=== PATIENT | male | born 1985 | race Caucasian/White ===

== ENCOUNTER 2019-05-29 20:47 | Inpatient (IN) | payer MEDICARE ==
--- NOTE | 2019-05-29 20:52 | PDOC ---
Rapid Medical Evaluation Time Seen by Provider: 05/29/19 20:49 Medical Evaluation: 05/29/19 20:50 HPI:9 foot fall on back onto metal pipe 3 days ago now with increasing lower back pain no radicular symptoms PE: no gross deficits + midline tenderness lumbar spine about L1,2, and 3 ORDERS: CT Lumbar spine Discharge Disposition - Diagnosis Lower back pain - Referrals - Patient Instructions - Post Discharge Activity
[2019-05-29] MEDS ORDERED: morphine CARPU-JECT 4 MG/1 ML DISP.SYRIN IVPUSH ONE (22:43)
--- NOTE | 2019-05-29 22:49 | PDOC ---
*Physical Exam - Vital Signs Last Vital Signs Temp Pulse Resp BP Pulse Ox 98.7 F 94 H 16 155/94 100 05/29/19 20:54 05/29/19 20:54 05/29/19 20:54 05/29/19 20:54 05/29/19 20:54 ED Treatment Course - LABORATORY CBC & Chemistry Diagram: 05/29/19 23:05 05/29/19 23:05 Medical Decision Making - Medical Decision Making 05/29/19 22:48 Pt seen by the Advanced Practice Provider under my direct supervision Ancillary studies reviewed I agree with plan as outlined by the Advanced Practice Provider ASHKAN Shore 05/30/19 02:58 CBC, BMP 05/29/19 23:05 05/29/19 23:05 CMP Sodium 134 mmol/L (136-145) L 05/29/19 23:05 Potassium 4.3 mmol/L (3.5-5.1) 05/29/19 23:05 Chloride 101 mmol/L (98-107) 05/29/19 23:05 Carbon Dioxide 27 mmol/L (21-32) 05/29/19 23:05 Anion Gap 7 MMOL/L (8-16) L 05/29/19 23:05 BUN 18.8 mg/dL (7-18) H 05/29/19 23:05 Creatinine 0.9 mg/dL (0.55-1.3) 05/29/19 23:05 Est GFR (CKD-EPI)AfAm 126.90 05/29/19 23:05 Est GFR (CKD-EPI)NonAf 109.49 05/29/19 23:05 Random Glucose 328 mg/dL (74-106) H* 05/29/19 23:05 Calcium 9.2 mg/dL (8.5-10.1) 05/29/19 23:05 Total Bilirubin 0.4 mg/dL (0.2-1) 05/29/19 23:05 AST 6 U/L (15-37) L 05/29/19 23:05 ALT 25 U/L (13-61) 05/29/19 23:05 Alkaline Phosphatase 133 U/L (45-117) H 05/29/19 23:05 Total Protein 7.2 g/dl (6.4-8.2) 05/29/19 23:05 Albumin 3.7 g/dl (3.4-5.0) 05/29/19 23:05 CT scan demonstrates no aortic dissection or aneurysm, no retroperitoneal hematoma. Fractures of left L1, L2, and L3 transverse processes. No paraspinal hematoma. 05/30/19 03:37 Consultation placed in for Dr. Walter. Pt discussed with [facility] hospitalist. Case accepted to med/surg admission. *DC/Admit/Observation/Transfer Diagnosis at time of Disposition: Lower back pain Qualifiers: Chronicity: acute Back pain laterality: unspecified Sciatica presence: without sciatica Qualified Code(s): M54.5 - Low back pain Lumbar vertebral fracture Qualifiers: Encounter type: initial encounter Lumbar vertebra fracture level: unspecified lumbar vertebra Fracture type: closed - Discharge Dispostion Condition at time of disposition: Stable Decision to Admit order: Yes - Referrals - Patient Instructions - Post Discharge Activity
--- NOTE | 2019-05-29 23:05 | PDOC ---
History of Present Illness - General Chief Complaint: Injury Stated Complaint: PAIN Time Seen by Provider: 05/29/19 20:49 History Source: Patient Exam Limitations: No Limitations - History of Present Illness Initial Comments: 05/29/19 22:48 HISTORY OF PRESENT ILLNESS: 34-year-old male denies medical history of presents emergency department for evaluation of lower back pain status post fall from scaffolding 2 days ago. Patient states he works in construction and while on a scaffolding lost his balance causing him to fall backwards. He grabbed onto a pole designed for safety which broke off the scaffolding causing him to fall off the scaffolding landing on another crossbeam of the scaffold after falling approximately 6 feet. Patient reports he struck the crossbeam the scaffolding with his lower back and left flank. Patient reports the pain is worsened over the past 2 days was convinced to come to the emergency department by his friends and family. Patient has not taken anything for pain denies any urinary difficulties. Patient denies any incontinence of bladder or bowel, saddle anesthesia, numbness or tingling in the lower extremities or head trauma. No recent travel or sick contacts. PAST MEDICAL HISTORY: Denies past medical history SURGICAL HISTORY: Denies ALLERGIES: No known drug allergies REVIEW OF SYSTEMS General/Constitutional: Denies fever or chills. Denies weakness, weight change. HEENT: Denies change in vision. Denies ear pain or discharge. Denies sore throat. Cardiovascular: Denies chest pain or shortness of breath. Respiratory: Denies cough, wheezing, or hemoptysis. Gastrointestinal: Denies nausea, vomiting, diarrhea or constipation. Denies rectal bleeding. Genitourinary: Denies dysuria, frequency, or change in urination. Musculoskeletal: see HPI Skin and breasts: Denies rash or easy bruising. Neurologic: Denies headache, vertigo, loss of consciousness, or loss of sensation. Psychiatric: Denies depression or anxiety. Endocrine: Denies increased thirst. Denies abnormal weight change. Hematologic/Lymphatic: Denies anemia, easy bleeding, or history of blood clots. Allergic/Immunologic: Denies hives or skin allergy. Denies latex allergy. PHYSICAL EXAM General Appearance: Well-appearing, appropriately dressed. No apparent distress , no intoxication. HEENT: EOMI, PERRLA, normal ENT inspection, normal voice, TMs normal, pharynx normal. No conjunctival pallor. No photophobia, scleral icterus. Neck: Supple. Trachea midline. No tenderness, rigidity, carotid bruit, stridor , lymphadenopathy, or thyromegaly. Respiratory/Chest: Lungs CTAB. No shortness of breath, chest tenderness, respiratory distress, accessory muscle use. No crackles, rales, rhonchi, stridor , wheezing, dullness Cardiovascular: RRR. S1, S2. No JVD, murmur, bradycardia, tachycardia. Vascular Pulses: Dorsalis-Pedis (R): 2+, Dorsalis-Pedis (L): 2+ Gastrointestinal/Abdominal: Normal bowel sounds. Abdomen soft, non-distended. Left sided abdominal tenderness. No organomegaly, pulsatile mass, guarding, hernia, hepatomegaly, splenomegaly. Lymphatic: No adenopathy, tenderness. Musculoskeletal/Extremities: Normal inspection. FROM of all extremities, normal capillary refill. Pelvis Stable. Left CVA tenderness. No tenderness to extremities, pedal edema, swelling, erythema or deformity. No cervical, thoracic or lumbar spinal deformity, crepitus or step offs present. Integumentary: 3-5 cm diameter circular ecchymotic areas presents to the left lower back lateral. Ecchymosis extending over the left flank. Neurologic: quarter lining smoother II-XII intact. Fully oriented, alert. Appropriate mood/affect. Motor strength 5/5. No appreciable EOM palsy, facial droop or sensory deficit. Past History - Past Medical History Allergies/Adverse Reactions: Allergies Allergy/AdvReac Type Severity Reaction Status Date / Time No Known Allergies Allergy Verified 05/29/19 21:00 Home Medications: Ambulatory Orders NK [No Known Home Medication] 05/30/19 COPD: No - Suicide/Smoking/Psychosocial Hx Smoking History: Former smoker Have you smoked in the past 12 months: No If you are a former smoker, when did you quit?: 04/2019 Information on smoking cessation initiated: No Hx Alcohol Use: No (hx of etoh) Drug/Substance Use Hx: No (hx cocaine/marijuana) *Physical Exam - Vital Signs Last Vital Signs Temp Pulse Resp BP Pulse Ox 98.7 F 94 H 16 155/94 100 05/29/19 20:54 05/29/19 20:54 05/29/19 20:54 05/29/19 20:54 05/29/19 20:54 ED Treatment Course - LABORATORY CBC & Chemistry Diagram: 05/30/19 10:30 05/30/19 10:40 - RADIOLOGY Radiology Studies Ordered: Category Date Time Status ABDOMEN & PELVIS CT WITH CONTR [CT] Stat CT Scan 05/29/19 22:[address] WITH CONTRAST [CT] Stat CT Scan 05/29/19 22:47 Ordered Medical Decision Making - Medical Decision Making 05/29/19 23:05 A/P: 34-year-old male with lower back pain status post trauma Differential diagnosis includes but is not limited to retroperitoneal bleed, spinal fracture, intestinal perforation Basic labs with type and screen CT of chest, abdomen and pelvis with IV contrast Morphine 4 mg IV push Reassess 05/30/19 01:55 CBC is notable for WBC of 11.7. Chemistries notable for glucose 328. Patient with no history of diabetes. Giving trauma I will add lipase to rule out a pancreatitis. Patient is pending lipase and CT chest abdomen and pelvis. Patient signed out to Dr. Koroma. *DC/Admit/Observation/Transfer Diagnosis at time of Disposition: Lower back pain Qualifiers: Chronicity: acute Back pain laterality: unspecified Sciatica presence: without sciatica Qualified Code(s): M54.5 - Low back pain Lumbar vertebral fracture Qualifiers: Encounter type: initial encounter Lumbar vertebra fracture level: unspecified lumbar vertebra Fracture type: closed - Discharge Dispostion Condition at time of disposition: Stable - Referrals - Patient Instructions - Post Discharge Activity
[2019-05-29] MEDS ORDERED: morphine SULFATE 4 MG/ML VIAL ONE (23:11)
[2019-05-29 23:28] LABS: BASO % 0.4 % (0-2.0); EOS % 0.2 % (0-4.5); HEMATOCRIT 41.4 % (35.4-49); HEMOGLOBIN 14.1 GM/dL (11.7-16.9); LYMPH % 35.5 % (8-40); MCH 29.5 pg (25.7-33.7); MCHC 34.1 g/dl (32.0-35.9); MEAN CELL VOLUME 86.4 fl (80-96); MEAN PLT VOLUME 8.9 fl (7.5-11.1); NEUT % 57.9 % (42.8-82.8); PLATELET COUNT 257 K/MM3 (134-434); RBC 4.79 M/mm3 (4.00-5.60); RDW 13.2 % (11.9-15.9); WHITE BLOOD COUNT 11.7 K/mm3 (4.0-10.0)
[2019-05-29 23:59] LABS: ALBUMIN 3.7 g/dl (3.4-5.0); BILIRUBIN,TOTAL 0.4 mg/dL (0.2-1); BLOOD UREA NITROGEN 18.8 mg/dL (7-18); CALCIUM 9.2 mg/dL (8.5-10.1); CREATININE 0.9 mg/dL (0.55-1.3); POTASSIUM 4.3 mmol/L (3.5-5.1); TOT PROT 7.2 g/dl (6.4-8.2)
[2019-05-30] MEDS ORDERED: SODIUM CHLORIDE 1,000 ML IV STA (00:13)
[2019-05-30] MEDS ORDERED: morphine CARPU-JECT 4 MG/1 ML DISP.SYRIN IVPUSH ONE (02:56)
[2019-05-30] MEDS ORDERED: morphine SULFATE 4 MG/ML VIAL ONE (03:13)
--- NOTE | 2019-05-30 03:40 | HP ---
CHIEF COMPLAINT: Back injury HISTORY OF PRESENT ILLNESS: This is a 34 year old M with no PMHx who presents with lower back pain s/p fall from a scaffolding x 2 days ago. Pt is a garage construction equipment mechanic and while on a scaffolding, lost balance, causing him to fall backwards. He fell 6 feet before hitting a crossbeam with his lower back and left flank. Pain has increased over the past 2 days. He has not taken any pain medications. Pt denies any urinary difficulties, incontinence of bladder or bowel, saddle anesthesia, numbness or tingling in the lower extremities or any head trauma. He denies any loss of consciousness and any headaches, dizziness, vertigo, or chest pain prior to fall. ER course was notable for: (1) CT abd: acute fracture of 1st, 2nd, 3rd L transverse processes (2) Morphine 4mg IV push Recent Travel: Denies PAST MEDICAL HISTORY: Denies PAST SURGICAL HISTORY: Denies Social History: Smoking: Quit 1 month ago Alcohol: Denies Drugs: Hx of cocaine, marijuana Family History: Noncontributory Allergies No Known Allergies Allergy (Verified 05/29/19 21:00) HOME MEDICATIONS: Home Medications Medication Instructions Recorded NK [No Known Home Medication] 05/30/19 REVIEW OF SYSTEMS CONSTITUTIONAL: Absent: fever, chills, diaphoresis, generalized weakness, malaise, loss of appetite, weight change HEENT: Absent: rhinorrhea, nasal congestion, throat pain, throat swelling, difficulty swallowing, mouth swelling, ear pain, eye pain, visual changes CARDIOVASCULAR: Absent: chest pain, syncope, palpitations, irregular heart rate, lightheadedness, peripheral edema RESPIRATORY: Absent: cough, shortness of breath, dyspnea with exertion, orthopnea, wheezing, stridor, hemoptysis GASTROINTESTINAL: Absent: abdominal pain, abdominal distension, nausea, vomiting, diarrhea, constipation, melena, hematochezia GENITOURINARY: Absent: dysuria, frequency, urgency, hesitancy, hematuria, flank pain, genital pain MUSCULOSKELETAL: see HPI SKIN: Absent: rash, itching, pallor HEMATOLOGIC/IMMUNOLOGIC: Absent: easy bleeding, easy bruising, lymphadenopathy, frequent infections ENDOCRINE: Absent: unexplained weight gain, unexplained weight loss, heat intolerance, cold intolerance NEUROLOGIC: Absent: headache, focal weakness or paresthesias, dizziness, unsteady gait, seizure, mental status changes, bladder or bowel incontinence PSYCHIATRIC: Absent: anxiety, depression, suicidal or homicidal ideation, hallucinations. PHYSICAL EXAMINATION Vital Signs - 24 hr 05/29/19 05/30/19 20:54 03:37 Temperature 98.7 F 97.7 F Pulse Rate 94 H Pulse Rate [ 75 Right Radial] Respiratory 16 Rate Blood Pressure 155/94 Blood Pressure 126/72 [Left Arm] O2 Sat by Pulse 100 98 Oximetry (%) GENERAL: Awake, alert, and fully oriented, in no acute distress. No intoxication HEAD: Normal with no signs of trauma. EYES: Pupils equal, round and reactive to light, extraocular movements intact, sclera anicteric, conjunctiva clear. No lid lag. EARS, NOSE, THROAT: Ears normal, nares patent, oropharynx clear without exudates. Moist mucous membranes. NECK: Normal range of motion, supple without lymphadenopathy, JVD, or masses. LUNGS: Breath sounds equal, clear to auscultation bilaterally. No wheezes, and no crackles. No accessory muscle use. HEART: Regular rate and rhythm, normal S1 and S2 without murmur, rub or gallop. ABDOMEN: Left-sided abd and flank tenderness. Soft, not distended, normoactive bowel sounds, no guarding, no rebound, no masses. No hepatomegaly or splenomegaly. MUSCULOSKELETAL: Normal range of motion at all joints. No bony deformities or tenderness. Left CVA tenderness. UPPER EXTREMITIES: 2+ pulses, warm, well-perfused. No cyanosis. No clubbing. No peripheral edema. LOWER EXTREMITIES: 2+ pulses, warm, well-perfused. No calf tenderness. No peripheral edema. NEUROLOGICAL: Normal speech. Gait not observed due to pain. Full sensation in extremities. PSYCHIATRIC: Cooperative. Good eye contact. Appropriate mood and affect. SKIN: Warm, dry, normal turgor, no rashes or lesions noted, normal capillary refill. 5cm diameter circular ecchymotic areas on left lower back Laboratory Results - last 24 hr 05/29/19 05/29/19 05/29/19 23:05 23:05 23:05 WBC 11.7 H RBC 4.79 Hgb 14.1 Hct 41.4 MCV 86.4 MCH 29.5 MCHC 34.1 RDW 13.2 Plt Count 257 MPV 8.9 Absolute Neuts (auto) 6.8 Neutrophils % 57.9 Lymphocytes % 35.5 Monocytes % 6.0 Eosinophils % 0.2 Basophils % 0.4 Nucleated RBC % 0 Sodium 134 L Potassium 4.3 Chloride 101 Carbon Dioxide 27 Anion Gap 7 L BUN 18.8 H Creatinine 0.9 Est GFR (CKD-EPI)AfAm 126.90 Est GFR (CKD-EPI)NonAf 109.49 Random Glucose 328 H* Calcium 9.2 Total Bilirubin 0.4 AST 6 L ALT 25 Alkaline Phosphatase 133 H Total Protein 7.2 Albumin 3.7 Blood Type Cancelled Antibody Screen Cancelled ASSESSMENT/PLAN: Pt is a 34 y/o M with no PMHx who presents with lower back and left flank pain s /p fall 2 days ago. #Fracture of left 1-3 transverse processes Morphine IV Q4 for pain Neurosurgery on board Neuro checks Q4h (especially of lower extremities) Bed rest NPO #Hyperglycemia Insulin sliding scale F/u Hgb a1c% F/u microalbumin #Possible surgery prep/health maintenance Order EKGs, PT, PTT, INR, type & screen, urine tox #DVT prophylaxis SCDs Visit type - Emergency Visit Emergency Visit: Yes ED Registration Date: 05/30/19 Care time: The patient presented to the Emergency Department on the above date and was hospitalized for further evaluation of their emergent condition. - New Patient This patient is new to me today: Yes Date on this admission: 05/30/19 - Critical Care Critical Care patient: No
[2019-05-30 05:23] VITALS: BMI 31.9
[2019-05-30] MEDS: SODIUM CHLORIDE 1,000 ML IV SCH (06:30)
[2019-05-30] MEDS: morphine SULFATE 4 MG/ML VIAL IVPUSH PRN ×4 (07:05→22:06)
[2019-05-30] MEDS: INSULIN SLIDING SCALE (NOVOLOG) 1 VIAL SQ SCH ×4 (07:06→22:05)
--- NOTE | 2019-05-30 08:26 | PN ---
Teaching Attending Note Name of Resident: Brandie Salgado ATTENDING PHYSICIAN STATEMENT I saw and evaluated the patient. chart, data, imaging reviewed. I reviewed the resident's note and discussed the case with the resident. I agree with the resident's findings and plan as documented. SUBJECTIVE: 34-year-old male denies medical history of presented for evaluation of lower back pain status post fall from scaffolding 2 days ago. Convinced by friends to seek medical attention. OBJECTIVE: Last Vital Signs Temp Pulse Resp BP Pulse Ox 98.9 F 73 16 128/66 98 05/30/19 05:28 05/30/19 05:28 05/30/19 05:28 05/30/19 05:28 05/30/19 03:37 gen- nad neuro - no le sensory deficits, patellar reflexes 2+ b/l Abnormal Lab Results 05/29/19 05/29/19 23:05 23:05 WBC 11.7 H Sodium 134 L Anion Gap 7 L BUN 18.8 H Random Glucose 328 H* AST 6 L Alkaline Phosphatase [address] scan demonstrates no aortic dissection or aneurysm, no retroperitoneal hematoma. Fractures of left L1, L2, and L3 transverse processes. No paraspinal hematoma. ASSESSMENT AND PLAN: #Fractures of left L1, L2, and L3 transverse processes. No neurological deficits. -med/surg -keep npo -morphine prn for pain control -bed rest -neurochecks q4hrs -neurosurgery eval -dvt ppx -scds #New onset DM -health promotion educator -a1c -optho, podiatry assessment
[2019-05-30 11:39] LABS: BASO % 0.5 % (0-2.0); EOS % 0.7 % (0-4.5); HEMATOCRIT 36.9 % (35.4-49); HEMOGLOBIN 12.8 GM/dL (11.7-16.9); LYMPH % 49.9 % (8-40); MCH 29.9 pg (25.7-33.7); MCHC 34.7 g/dl (32.0-35.9); MEAN CELL VOLUME 86.2 fl (80-96); MEAN PLT VOLUME 8.6 fl (7.5-11.1); MONO % 6.1 % (3.8-10.2); NEUT % 42.8 % (42.8-82.8); RBC 4.28 M/mm3 (4.00-5.60); WHITE BLOOD COUNT 9.9 K/mm3 (4.0-10.0)
[2019-05-30 11:57] LABS: BILIRUBIN,TOTAL 0.4 mg/dL (0.2-1); BLOOD UREA NITROGEN 15.4 mg/dL (7-18); CREATININE 0.6 mg/dL (0.55-1.3); MAGNESIUM 2.3 mg/dL (1.8-2.4); PHOSPHOROUS 3.1 mg/dL (2.5-4.9); TOT PROT 5.8 g/dl (6.4-8.2)
[2019-05-30 12:09] LABS: INR 0.94 (0.83-1.09); PROTHROMBIN TIME (PATIENT) 11.1 SEC (9.7-13.0)
[2019-05-30 12:11] LABS: ACTIVATED PTT 32.4 SECONDS (25.2-36.5)
[2019-05-30 12:18] LABS: BILIRUBIN,TOTAL 0.6 mg/dL (0.2-1); BLOOD UREA NITROGEN 15.4 mg/dL (7-18); CALCIUM 8.1 mg/dL (8.5-10.1); CREATININE 0.5 mg/dL (0.55-1.3); MAGNESIUM 2.5 mg/dL (1.8-2.4); PHOSPHOROUS 2.7 mg/dL (2.5-4.9); POTASSIUM 3.6 mmol/L (3.5-5.1); TOT PROT 5.9 g/dl (6.4-8.2)
[2019-05-30 12:27] LABS: PLATELET COUNT 254 K/MM3 (134-434)
--- NOTE | 2019-05-30 17:30 | CONSULT ---
Consult - text type - Consultation Consultation Note: NEUROSURGERY CONSULTATION Patient is a 34 year old male who sustained an injury several days ago when he fell from a scaffold. He has been Neurologically intact, however, due to persisting pain, he was encouraged to seek medical attention. The patient presented to the [facility] where CT Lumbar revealed several Lumbar transverse process fractures. This can be treated with analgesics and bracing for comfort. The patient complained of pain and was reluctant to be discharged. In an abundance of caution, MRI was obtained which does not reveal any disc herniation, hematoma, unrecognized fracture or any other concerning pathological or traumatic findings. patient is stable for discharge from Neurosurgery standpoint - Abdominsl binder for comfort - Analgesics - Avoid smoking - Patient can call my office for followup
[2019-05-30] MEDS ORDERED: INSULIN (NOVOLOG) ASPART 100 UNITS/ML 10ML VIAL ONE (21:33)
[2019-05-30] MEDS ORDERED: PT OWN MED DRAWER 7, Y5N ONE (22:21)
[2019-05-31 06:39] LABS: BASO % 0.5 % (0-2.0); EOS % 0.9 % (0-4.5); HEMATOCRIT 38.1 % (35.4-49); LYMPH % 52.8 % (8-40); MCH 29.6 pg (25.7-33.7); MEAN CELL VOLUME 87.1 fl (80-96); MEAN PLT VOLUME 8.7 fl (7.5-11.1); MONO % 6.7 % (3.8-10.2); NEUT % 39.1 % (42.8-82.8); PLATELET COUNT 236 K/MM3 (134-434); RBC 4.38 M/mm3 (4.00-5.60); RDW 13.2 % (11.9-15.9); WHITE BLOOD COUNT 9.1 K/mm3 (4.0-10.0)
[2019-05-31 06:55] LABS: ALBUMIN 2.8 g/dl (3.4-5.0); BILIRUBIN,TOTAL 0.4 mg/dL (0.2-1); BLOOD UREA NITROGEN 11.9 mg/dL (7-18); CALCIUM 8.1 mg/dL (8.5-10.1); CREATININE 0.5 mg/dL (0.55-1.3); MAGNESIUM 2.2 mg/dL (1.8-2.4); PHOSPHOROUS 3.5 mg/dL (2.5-4.9); POTASSIUM 3.9 mmol/L (3.5-5.1); TOT PROT 5.5 g/dl (6.4-8.2)
[2019-05-31] MEDS: INSULIN SLIDING SCALE (NOVOLOG) 1 VIAL SQ SCH ×3 (07:01→17:55)
[2019-05-31] MEDS: SODIUM CHLORIDE 1,000 ML IV SCH (07:02)
[2019-05-31] MEDS: morphine SULFATE 4 MG/ML VIAL IVPUSH PRN (07:03)
[2019-05-31 11:20] LABS: COCAINE, UR NEGATIVE ng/ml (CUTOFF=300); METHADONE, UR NEGATIVE ng/ml (CUTOFF=300); PHENCYCLIDINE,URINE NEGATIVE ng/ml (CUTOFF=25); URINE AMPHETAMINES NEGATIVE ng/ml (CUTOFF=500); URINE BARBITURATES NEGATIVE ng/ml (CUTOFF=200); URINE BENZODIAZEPINES NEGATIVE ng/ml (CUTOFF=200)
[2019-05-31 12:14] LABS: OPIATES, URI POSITIVE ng/ml (CUTOFF=300)
--- NOTE | 2019-05-31 14:18 | CONSULT ---
Consult Consult Specialty:: Endocrinology Referred by:: Dr Briones Reason for Consultation:: New onset DM - History of Present Illness Chief Complaint: Back pain s/p Fall History of Present Illness: This is a 34 year old M with no PMHx who presented with lower back pain s/p fall from a scaffolding x 2 days ago. 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 He fell 6 feet before hitting a crossbeam with his lower back and left flank. Pain has increased over the past 2 days. Pt denies any urinary difficulties, incontinence of bladder or bowel, saddle anesthesia, numbness or tingling in the lower extremities or any head trauma. He denies any loss of consciousness and any headaches, dizziness, vertigo, or chest pain prior to fall. CT abd: acute fracture of 1st, 2nd, 3rd L transverse processes. Pt is also found to be hyperglycemic and is referred for management. Pt denies any h/o DM. Last medical exam about 5 years ago. Denies any polyuria, polydipsia or nocturia. No visual symptoms. No paresthesia of feet. - History Source History Provided By: Patient, Medical Record Limitations to Obtaining History: No Limitations - Past Medical History Musculoskeletal: Yes: Other (Acute back pain) - Alcohol/Substance Use Hx Alcohol Use: No (hx of etoh) - Smoking History Smoking history: Former smoker Have you smoked in the past 12 months: No If you are a former smoker, when did you quit?: 04/2019 Home Medications - Allergies Allergies/Adverse Reactions: Allergies Allergy/AdvReac Type Severity Reaction Status Date / Time No Known Allergies Allergy Verified 05/29/19 21:00 - Home Medications Home Medications: Ambulatory Orders NK [No Known Home Medication] 05/30/19 Family Disease History - Family Disease History Other Family History: Aunt has DM Review of Systems - Review of Systems Constitutional: reports: No Symptoms Eyes: reports: No Symptoms HENT: reports: No Symptoms Neck: reports: No Symptoms Cardiovascular: reports: No Symptoms Respiratory: reports: No Symptoms Gastrointestinal: reports: No Symptoms Genitourinary: reports: No Symptoms Musculoskeletal: reports: Other (Back pain) Neurological: reports: No Symptoms Endocrine: reports: No Symptoms Physical Exam Vital Signs: Vital Signs Temperature 98.5 F 05/31/19 06:00 Pulse Rate 66 05/31/19 06:00 Respiratory Rate 20 05/31/19 06:00 Blood Pressure 98/57 L 05/31/19 06:00 O2 Sat by Pulse Oximetry (%) 98 05/30/19 21:00 Constitutional: Yes: No Distress, Calm Eyes: Yes: Conjunctiva Clear, EOM Intact HENT: Yes: Atraumatic, Normocephalic Neck: Yes: Supple, Trachea Midline Cardiovascular: Yes: Regular Rate and Rhythm Respiratory: Yes: Regular, CTA Bilaterally Gastrointestinal: Yes: Normal Bowel Sounds, Soft Musculoskeletal: Yes: Back Pain Extremities: Yes: WNL Edema: No Neurological: Yes: Alert, Oriented Labs: CBC, BMP 05/31/19 05:39 05/31/19 05:39 Assessment/Plan AP; Back pain s/p fall Fracture of lumbar transpverse processed T2DM new onset Diet exercise discussed No sugary drinks Diabetes education one SS of hyper and hypoglycemia discussed Start Metformin 500mg BID Glipizide 5mg Half tab BID 15 mins premeals Monitor BGM BID BGM goal fasting around 100 and Premeals during the say up to 140. F/U with PCP/Endo in one week. To call [phone] with any questions.
[2019-05-31 14:52] VITALS: BP 135/75; PULSE 85; TEMP 98.8
--- NOTE | 2019-05-31 15:37 | DS ---
Physical Exam: SUBJECTIVE: Patient seen this morning and reports he is feeling better. The brace is helping. OBJECTIVE: Vital Signs Temperature 98.8 F 05/31/19 14:50 Pulse Rate 85 05/31/19 14:50 Respiratory Rate 20 05/31/19 14:50 Blood Pressure 135/75 05/31/19 14:50 O2 Sat by Pulse Oximetry (%) 98 05/30/19 21:00 PHYSICAL EXAM GENERAL: The patient is awake, alert, and fully oriented, in no acute distress. HEAD: Normal with no signs of trauma.. LUNGS: Breath sounds equal, clear to auscultation bilaterally, no wheezes, no crackles, no accessory muscle use. HEART: Regular rate and rhythm, S1, S2 without murmur, rub or gallop. ABDOMEN: Soft, nontender, nondistended, normoactive bowel sounds, EXTREMITIES: 2+ pulses, warm, well-perfused, no edema. tender to left lower back palaption, patient sitting at edge of bed NEUROLOGICAL: lower extremity sensation intact SKIN: Warm, dry, normal turgor, no rashes or lesions noted. LABS CBC, BMP 05/31/19 05:39 05/31/19 05:39 HOSPITAL COURSE: Date of Admission:05/30/19 Patient with a 34 y/o male who presented with lower back pain. Patient had mildly displaced acute fractures of L1, L2, and L3 left transverse process. Neuro evaluated patient and stated pain management at this time with a brace. While patient was here found to have an A1c of 11. Endocrine evaluated and started patient on metformin and glipizide. Discussed with patient to follow up as an outpatient. Patient stable and vitals stable for discharge. Lumbar MRI: mildly displaced acute fractures of L1, L2, and L3 left transverse process with edema ABD CT: overdistended/elongated gallbladder with multiple intraluminal stones/ cholesterol granuels, no evidence of acute cholecystis Date of Discharge: 05/31/19 Minutes to complete discharge: 40 Discharge Summary Reason For Visit: LOW BACK PAIN Current Active Problems Diabetes (Acute) Lower back pain (Acute) Lumbar vertebral fracture (Acute) Condition: Stable - Instructions Diet, Activity, Other Instructions: You were admitted to the hospital for back pain. While you were here we had imaging ( CT scan) of your back done that showed fractures of your lower spine. We had a neurologist evaluate you who determined you do not need surgery at this time. Please make an appointment with the neurologist within one week to continue management of your fractures. For the pain please take tylenol 650 mg every 4 hours as needed, do not exceed 3 gm of tylenol in one day or 400 mg of Motrin every 4 hours and do not exceed 2500 mg per day. while you were here we diagnosed you with Diabetes. This means your sugar levels in your blood are too high. You need to continue to follow up with an angle shearer as an outpatient. It is very important that you eat healthy and exercise, please try to avoid foods that are high in sugar. To treat your diabetes please take: Metformin 500mg by mouth twice a day Glipizide 2.5 mg by mouth twice a day Please make an appointment with your primary care physician within one week. Resume all your home medications as prescribed. Return to the Emergency Department if you have any nausea vomitn,g trouble urinating, numbness in your pelvis or legs, chest pain, or shortness of breath. En Espanol Usted fue ingresado en el hospital por dolor de espalda. Mientras estuvo aqu, nos tomaron imgenes (tomografa computarizada) de grady espalda que mostraban fracturas de la columna inferior. Un neurlogo lo evalu y determin que no necesita ciruga en helen momento. Krys hilda tom con el neurlogo dentro de hilda semana para continuar con el tratamiento de peggy fracturas. Para el dolor, tome tylenol 650 mg cada 4 horas segn sea necesario, no exceda de 3 g de tylenol en un da o 400 mg de Motrin cada 4 horas y no exceda de 2500 mg por da. Mientras estabas aqu te diagnosticamos diabetes. [place] significa que peggy niveles de azcar en la reynaldo son demasiado altos. Debe continuar el seguimiento con un endocrinlogo atiya paciente ambulatorio. Es muy importante que coma de manera saludable y krys ejercicio, por favor trate de evitar los alimentos con alto contenido de azcar. Para tratar grady diabetes por favor tome: Metformina 500 mg por va oral dos veces al da. Glipizida 2.5 mg por va oral dos veces al da. Por favor krys hilda tom con grady mdico de atencin primaria dentro de hilda semana. Reanude todos peggy medicamentos caseros segn lo prescrito. Regrese al Departamento de Emergencias si tiene nuseas, vmitos, problemas para orinar, entumecimiento en la pelvis o piernas, dolor en el pecho o dificultad para respirar. Referrals: Abena Lewis [Non Staff, Medical] - Edu Walter MD, FAANS [Staff Physician] - 06/01/19 Priya Rodriguez MD [Staff Physician] - 1 Week Disposition: HOME - Home Medications Comprehensive Discharge Medication List: Ambulatory Orders Glipizide [Glucotrol -] 2.5 mg PO BID@0700,1630 #60 tablet 05/31/19 Miscellaneous Medical Supply [Glucometer Device] 1 each SQ ASDIR #1 kit [employer] [Glucometer Test Strips #100] 1 each SQ ASDIR #1 box 05/31/19 Oxycodone HCl 5 mg PO Q6H PRN #12 tablet MDD 4 05/31/19 Pen Needle, Diabetic [[place]] 1 each MC BID #50 dis.needle 05/31/19 metFORMIN HCL [Glucophage -] 500 mg PO BID@0700,1630 #60 tablet 05/31/19 This patient is new to me today: No Emergency Visit: No Critical Care patient: No - Discharge Referral Referred to [facility] No
[2019-05-31] MEDS ORDERED: glipiZIDE 5 MG TABLET (FP) PO SCH (16:30)
[2019-05-31] MEDS ORDERED: metFORMIN HCL 500 MG TABLET (FP) PO SCH (16:30)
--- NOTE | 2019-05-31 18:29 | PN ---
Teaching Attending Note Name of Resident: Dilia Ramsey ATTENDING PHYSICIAN STATEMENT I saw and evaluated the patient. I reviewed the resident's note and discussed the case with the resident. I agree with the resident's findings and plan as documented. SUBJECTIVE: Patient is comfortable with no acute distress. OBJECTIVE: Vital Signs Temperature 98.8 F 05/31/19 14:50 Pulse Rate 85 05/31/19 14:50 Respiratory Rate 20 05/31/19 14:50 Blood Pressure 135/75 05/31/19 14:50 O2 Sat by Pulse Oximetry (%) 98 05/30/19 21:00 GENERAL: Awake, alert, and fully oriented, in no acute distress. HEAD: Normal with no signs of trauma. EYES: Pupils equal, round and reactive to light, extraocular movements intact, sclera anicteric, conjunctiva clear. EARS, NOSE, THROAT: Ears normal, oropharynx clear without exudates. Moist mucous membranes. NECK: Normal range of motion, supple without lymphadenopathy, JVD, or masses. LUNGS: Breath sounds equal, clear to auscultation bilaterally. No wheezes, and no crackles. No accessory muscle use. HEART: Regular rate and rhythm, normal S1 and S2 without murmur, rub or gallop. ABDOMEN: Left-sided abd and flank tenderness. Soft, not distended, normoactive bowel sounds, no guarding, no rebound, no masses. EXTREMITIES: 2+ pulses, warm, well-perfused. No cyanosis. No clubbing. No peripheral edema. NEUROLOGICAL: Normal speech. Gait not observed due to pain. Full sensation in extremities. PSYCHIATRIC: Cooperative. Good eye contact. Appropriate mood and affect. SKIN: Warm, dry, normal turgor, no rashes or lesions noted, normal capillary refill. CBCD WBC 9.1 K/mm3 (4.0-10.0) 05/31/19 05:39 RBC 4.38 M/mm3 (4.00-5.60) 05/31/19 05:39 Hgb 13.0 GM/dL (11.7-16.9) 05/31/19 05:39 Hct 38.1 % (35.4-49) 05/31/19 05:39 MCV 87.1 fl (80-96) 05/31/19 05:39 MCHC 34.0 g/dl (32.0-35.9) 05/31/19 05:39 RDW 13.2 % (11.9-15.9) 05/31/19 05:39 Plt Count 236 K/MM3 (134-434) 05/31/19 05:39 MPV 8.7 fl (7.5-11.1) 05/31/19 05:39 CMP Sodium 141 mmol/L (136-145) 05/31/19 05:39 Potassium 3.9 mmol/L (3.5-5.1) 05/31/19 05:39 Chloride 108 mmol/L (98-107) H 05/31/19 05:39 Carbon Dioxide 28 mmol/L (21-32) 05/31/19 05:39 Anion Gap 5 MMOL/L (8-16) L 05/31/19 05:39 BUN 11.9 mg/dL (7-18) 05/31/19 05:39 Creatinine 0.5 mg/dL (0.55-1.3) L 05/31/19 05:39 Random Glucose 208 mg/dL (74-106) H 05/31/19 05:39 Calcium 8.1 mg/dL (8.5-10.1) L 05/31/19 05:39 Total Bilirubin 0.4 mg/dL (0.2-1) 05/31/19 05:39 AST 6 U/L (15-37) L 05/31/19 05:39 ALT 17 U/L (13-61) 05/31/19 05:39 Alkaline Phosphatase 82 U/L (45-117) 05/31/19 05:39 Total Protein 5.5 g/dl (6.4-8.2) L 05/31/19 05:39 Albumin 2.8 g/dl (3.4-5.0) L 05/31/19 05:39 Current Medications Generic Name Dose Route Start Last Admin Trade Name Freq PRN Reason Stop Dose Admin Glipizide 2.5 mg 05/31/19 16:30 05/31/19 17:54 Glucotrol - PO 2.5 mg BID@0700,1630 [facility] Administration Insulin Aspart 1 vial 05/30/19 22:00 05/31/19 17:55 Novolog Vial Sliding Scale - SQ Not Given [facility] Protocol Metformin HCl 500 mg 05/31/19 16:30 05/31/19 17:54 Glucophage - PO 500 mg BID@0700,1630 [facility] Administration Morphine Sulfate 4 mg 05/30/19 05:56 05/31/19 07:03 Morphine Sulfate IVPUSH 4 mg Q4H PRN Administration PAIN LEVEL 7 - 10 Home Medications Medication Instructions Recorded Glipizide [Glucotrol -] 2.5 mg PO BID@0700,1630 #60 tablet 05/31/19 Miscellaneous Medical Supply 1 each SQ ASDIR #1 kit 05/31/19 [Glucometer Device] Miscellaneous Medical Supply 1 each SQ ASDIR #1 box 05/31/19 [Glucometer Test Strips #100] Oxycodone HCl 5 mg PO Q6H PRN #12 tablet MDD 4 05/31/19 Pen Needle, Diabetic [[place]] 1 each MC BID #50 dis.needle 05/31/19 metFORMIN HCL [Glucophage -] 500 mg PO BID@0700,1630 #60 tablet 05/31/19 CT scan demonstrates no aortic dissection or aneurysm, no retroperitoneal hematoma. Fractures of left L1, L2, and L3 transverse processes. No paraspinal hematoma. ASSESSMENT AND PLAN: #Fractures of left L1, L2, and L3 transverse processes. No neurological deficits. Patient is evaluated by neurosurgery ordered brace to wear and follow up with neurosurgery in am #New onset DM : seen the patient , continue glucotrol and metformin. follow with in aweek period. dischrge patient home.
== END 2019-05-31 18:00 | disposition home or self-care (01) | DRG 347 ==
LOC: JER 20:47 → JERBED 05-30 03:38 → J5S 05-30 04:57
PROVIDERS: ADMIT Internal Medicine; ATTEND Internal Medicine
DX: S32.018A Other fracture of first lumbar vertebra, initial encounter for closed fracture (principal); S32.028A Other fracture of second lumbar vertebra, initial encounter for closed fracture; S32.038A Other fracture of third lumbar vertebra, initial encounter for closed fracture; W17.89XA Other fall from one level to another, initial encounter; Y92.89 Other specified places as the place of occurrence of the external cause; E11.65 Type 2 diabetes mellitus with hyperglycemia; K82.8 Other specified diseases of gallbladder; M54.5 Low back pain
CPT/HCPCS: 36415; 71260-TC; 72131-TC; 72148-TC; 74177-TC; 80053; 80307; 82962; 83036; 83690; 83735; 84100; 85025; 85610; 85730; 86850; 86900; 86901; 99285-25; J7030

== ENCOUNTER 2021-12-26 02:38 | Emergency (ER) | payer SELFPAY ==
[2021-12-26 03:02] VITALS: BMI 32.5
[2021-12-26 04:29] LABS: BASO % 0.5 % (0-2.0); EOS % 1.5 % (0-4.5); HEMOGLOBIN 12.8 GM/dL (11.7-16.9); LYMPH % 30.2 % (8-40); MCH 28.8 pg (25.7-33.7); MCHC 34.4 g/dl (32.0-35.9); MEAN CELL VOLUME 83.7 fl (80-96); MEAN PLT VOLUME 8.2 fl (7.5-11.1); MONO % 8.8 % (3.8-10.2); PLATELET COUNT 268 10^3/uL (134-434); RBC 4.42 M/mm3 (4.00-5.60); RDW 13.2 % (11.9-15.9); WHITE BLOOD COUNT 6.9 K/mm3 (4.0-10.0)
[2021-12-26 04:45] LABS: CHLORIDE 100 mmol/L (98-107); SODIUM 133 mmol/L (136-145)
[2021-12-26 04:48] LABS: ALBUMIN 3.5 g/dl (3.4-5.0); ANION GAP 7 MMOL/L (8-16); BLOOD UREA NITROGEN 14.1 mg/dL (7-18); CO2 26 mmol/L (21-32)
[2021-12-26 04:51] LABS: CREATININE 0.8 mg/dL (0.55-1.3); SGOT/AST 13 U/L (15-37); SGPT/ALT 28 U/L (13-61)
[2021-12-26 04:53] LABS: BILIRUBIN,TOTAL 0.4 mg/dL (0.2-1); TOT PROT 6.8 g/dl (6.4-8.2)
[2021-12-26 04:54] LABS: ALK PHOS 152 U/L (45-117)
[2021-12-26 05:03] LABS: GLUCOSE,RANDOM 442 mg/dL (74-106)
[2021-12-26] MEDS ORDERED: SODIUM CHLORIDE 0.9% 500 ML INFUS.BAG IV ONE (05:06)
[2021-12-26 05:34] VITALS: BP 134/93; PULSE 96; TEMP 98.7
== END 2021-12-26 06:34 | disposition home or self-care (01) ==
LOC: JER 02:38
DX: R13.10 Dysphagia, unspecified (principal); E11.65 Type 2 diabetes mellitus with hyperglycemia
CPT/HCPCS: 36415; 70491-TC; 71046-TC-FY; 80053; 82550; 82962; 84484; 85025; 87804; 93005; 93010; 99285-25; C9803; Q9967; U0003; U0005